=== PATIENT | male | born 1975 | race American Indian/Alaskan Native ===

== ENCOUNTER 2017-04-21 04:18 | Emergency (ER) | payer OTHER ==
[2017-04-21] MEDS ORDERED: MOTRIN ONE (06:01)
[2017-04-21 06:08] VITALS: BP 160/80
[2017-04-21] MEDS ORDERED: MOTRIN PO ONE (06:10)
--- NOTE | 2017-04-21 08:00 | XRay Report ---
FINAL REPORT EXAM: XR HAND 2V RT HISTORY: Right ring finger laceration and injury COMPARISONS: None. FINDINGS: Three views right hand/ring finger Distal soft tissue irregularity involving the right 4th finger without radiodense foreign body. There is a comminuted distal tuft fracture with minimal displacement/distraction. Mild diffuse distal interphalangeal osteoarthrosis. Remaining joint spaces are unremarkable, and alignment is otherwise anatomic. IMPRESSION: Comminuted extra-articular right 4th distal phalanx fracture with overlying soft tissue injury. No radiodense foreign body.
[2017-04-21] MEDS ORDERED: XYLOCAINE 2% INFILTRATI ONE (10:05)
--- NOTE | 2017-04-21 10:07 | Emergency Department Report ---
ED Laceration HPI - HPI Chief Complaint: Wound/Laceration Stated Complaint: R. RING FINGER INJURY Time Seen by Provider: 04/21/17 09:04 Occurred When: Today Location: Upper Extremity Severity: moderate Tetanus Status: Up to Date Laceration Symptoms: Yes Pain, No Foreign Body Sensation, No Numbness, No Weakness Other History: Patient is a 41-year-old male presents to the ED complaining of right fourth digit pain and laceration times today. Patient states she was at home in his garage working on some metal pipes when they crashed his finger cut him. He states he's had a tetanus booster within the past 10 yrs ED Review of Systems ROS: Stated complaint: R. RING FINGER INJURY Other details as noted in HPI Constitutional: denies: chills, fever Eyes: denies: eye pain, eye discharge, vision change ENT: denies: ear pain, throat pain Respiratory: denies: cough, shortness of breath, wheezing Cardiovascular: denies: chest pain, palpitations Endocrine: no symptoms reported Gastrointestinal: denies: abdominal pain, nausea, diarrhea Genitourinary: denies: urgency, dysuria Musculoskeletal: denies: back pain, joint swelling, arthralgia Skin: denies: rash, lesions Neurological: denies: headache, weakness, paresthesias Psychiatric: denies: anxiety, depression Hematological/Lymphatic: denies: easy bleeding, easy bruising ED Past Medical Hx - Past Medical History Hx Diabetes: Yes - Surgical History Past Surgical History?: No - Social History Smoking Status: Never Smoker Substance Use Type: None - Medications Home Medications: Home Medications Medication Instructions Recorded Confirmed Last Taken Type Cephalexin [Keflex] 500 mg PO BID #14 capsule 04/21/17 Unknown Rx HYDROcodone/APAP 5-325 [[place] 1 each PO Q6HR PRN #12 tablet 04/21/17 Unknown Rx 5/325] Ibuprofen [Motrin] 800 mg PO Q8HR PRN #30 tablet 04/21/17 Unknown Rx Lantus 40 unit SQ DAILY 04/21/17 04/21/17 Unknown History Laceration Physical Exam - Exam General: Vital signs noted. No distress. Alert and acting appropriately. Laceration Location: Upper Extremity Laceration Exam: Yes Normal Distal CMS, No Foreign Body, No Exposed Tendon, Vessel, or Nerve, No Tendon Injury ED Course Vital Signs 04/21/17 06:01 Temperature 98.2 F Pulse Rate 66 Respiratory 18 Rate Blood Pressure 160/80 O2 Sat by Pulse 98 Oximetry ED Medical Decision Making - Radiology Data Radiology results: report reviewed, image reviewed XRay Report FINAL REPORT EXAM: XR HAND 2V RT HISTORY: Right ring finger laceration and injury COMPARISONS: None. FINDINGS: Three views right hand/ring finger Distal soft tissue irregularity involving the right 4th finger without radiodense foreign body. There is a comminuted distal tuft fracture with minimal displacement/distraction. Mild diffuse distal interphalangeal osteoarthrosis. Remaining joint spaces are unremarkable, and alignment is otherwise anatomic. IMPRESSION: Comminuted extra-articular right 4th distal phalanx fracture with overlying soft tissue injury. No radiodense foreign body. Transcribed By: RICHI Dictated By: YARED ROGERS MD Electronically Authenticated By: YARED ROGERS MD Signed Date/Time: 04/21/17 0357 - Medical Decision Making 41-year-old male presents with fracture fourth digit . ED course: Patient was given pain relief and ED stay. X-ray obtained ordered. X-ray report see above , I discussed x-ray findings with the patient. Digital block was obtained with 4 mL of 2% lidocaine without epi. Wound at that tip of the finger disrupting nailbed. Wound was soaked in Betadine solution for 5 minutes. Nailbed was easily removed. Bleeding was controlled with silver nitrate. Wound was wrapped with oil emulsion dressing and sterilly pressure dressed with gauze wrapping. Finger was placed in finger frog spint he tolerated procedure well. Discussed the patient nailbed and the nail may not grow back. I discussed with the patient said acute wound 48 hours. I discussed with the patient to return for wound check in 3 days. I discussed with the patient to take antibiotics as prescribed. Discussed the patient that if bleeding continues [id number] to return to ED immediately. I discussed with the patient need to follow-up with orthopedic doctor for his distal phalanx fracture. Patient is alert and oriented 3, vital signs normal. He is in no acute distress. Patient understands all instructions given Critical care attestation.: If time is entered above; I have spent that time in minutes in the direct care of this critically ill patient, excluding procedure time. ED Disposition Clinical Impression: Fracture of distal phalanx of finger of right hand Disposition: DC- TO HOME OR SELFCARE Is pt being admited?: No Does the pt Need Aspirin: No Condition: Stable Instructions: Finger Fracture (ED), Acute Wound Care (ED) Additional Instructions: Make sure to follow up with the primary care physician as discussed. The lower with Dr. Bowling who is orthopedic in 3-5 days Take all your medications as you've been prescribed. If you have any worsening symptoms or develop new symptoms please return to ED immediately. KEEP Dressing on for 48 hours Prescriptions: Cephalexin [Keflex] 500 mg PO BID #14 capsule HYDROcodone/APAP 5-325 [[place] 5/325] 1 each PO Q6HR PRN #12 tablet PRN Reason: Pain Ibuprofen [Motrin] 800 mg PO Q8HR PRN #30 tablet PRN Reason: Pain Referrals: PRIMARY CARE, [Primary Care Provider] - 3-5 Days [facility] [Outside] - 3-5 Days [facility] [Outside] - 3-5 Days [facility] [Outside] - 3-5 Days PATRICIA BOWLING MD [Staff Physician] - 3-5 Days Forms: Accompanied Note, Work/School Release Form(ED) Time of Disposition: 11:22
[2017-04-21] MEDS ORDERED: SILVER NITRATE TP ONE (10:39)
== END 2017-04-21 11:37 | disposition home or self-care (01) ==
LOC: ED 04:18
DX: S62.634A Displaced fracture of distal phalanx of right ring finger, initial encounter for closed fracture (principal); E11.9 Type 2 diabetes mellitus without complications; W23.0XXA Caught, crushed, jammed, or pinched between moving objects, initial encounter; Y93.89 Activity, other specified; Y92.015 Private garage of single-family (private) house as the place of occurrence of the external cause; Y99.8 Other external cause status
CPT/HCPCS: 99283